=== PATIENT | male | born 1945 | race Caucasian/White ===

== ENCOUNTER 2017-07-22 14:46 | Outpatient (CLI) | payer OTHER ==
[2014-07-18 13:55] VITALS: BP 184/87
[2017-07-22 15:01] LABS: BASOPHILS % 0.6 (0.0-1.5); EOSINOPHILS % 3.5 % (0.0-6.8); MEAN CORPUSCULAR HEMOGLOBIN 29.7 pg (28.0-34.0); MEAN CORPUSCULAR VOLUME 93.3 fl (80.0-100.0); MONOCYTES % 5.6 % (0.0-11.0)
[2017-07-22 15:46] LABS: eGFR (African) 59; eGFR (Non-African) 49
== END 2017-07-22 15:00 ==
LOC: LAB 14:46
PROVIDERS: ATTEND Family Medicine
DX: I10 Essential (primary) hypertension (principal)
CPT/HCPCS: 36415; 80053; 85025